=== PATIENT | male | born 1950 | race Caucasian/White ===

== ENCOUNTER → 2016-07-05 | Outpatient (CLI) | payer OTHER ==
--- NOTE | 2016-07-05 18:09 | DX ---
Lumbar Spine, Two Views History: Lumbar fusion hardware. Comparison: April 2016. Findings: Five lumbar vertebral body segments, without compression fractures. Bilateral transpedicu lar screws and fusion rods at the L4, L5, and S1 levels. Interbody prosthetic disk material identifi ed at L4-L5 and L5-S1 in good position, with stable alignment from L4 through S1. Hardware appears i ntact, without a fracture. Bilateral total hip arthroplasties. L3-L4: Moderate degenerative disk disease and degenerative grade 1 retrolisthesis, 3 mm, with circum ferential osteophytes. L2-L3: Moderate degenerative disk disease, with 1-mm retrolisthesis and smaller osteophytes. L1-L2: Moderate degenerative disk disease, with endplate sclerotic changes, moderate disk space narr owing, circumferential osteophytes, and 2-mm retrolisthesis again noted. Impressions 1. L4-S1 diskectomies, with posterior fusion hardware, demonstrating stable alignment. 2. Moderate degenerative disk disease from L1-L2 through L3-L4, with minimal retrolisthesis at all t hree levels, similar to the previous study.
== END ==
LOC: EDSTATUS 11:38 → FIMAGING 14:10
PROVIDERS: ATTEND Physician Assistant
DX: Z98.1 Arthrodesis status (principal); M51.36 Other intervertebral disc degeneration, lumbar region

== ENCOUNTER → 2017-01-31 | Outpatient (CLI) | payer OTHER | LOC: FIMAGING 08:34 | PROVIDERS: ATTEND Physician Assistant | DX: M48.06 Spinal stenosis, lumbar region (principal); M54.16 Radiculopathy, lumbar region; Z98.1 Arthrodesis status ==

== ENCOUNTER → 2017-03-08 | Outpatient (CLI) | payer OTHER | LOC: FIMAGING 07:41 | PROVIDERS: ATTEND Nurse Practitioner | DX: M54.5 Low back pain (principal); M25.551 Pain in right hip; M25.552 Pain in left hip; M48.06 Spinal stenosis, lumbar region; M48.04 Spinal stenosis, thoracic region; M51.36 Other intervertebral disc degeneration, lumbar region; M51.34 Other intervertebral disc degeneration, thoracic region; Z98.890 Other specified postprocedural states; Z96.643 Presence of artificial hip joint, bilateral ==

== ENCOUNTER → 2017-05-26 | Outpatient (CLI) | payer OTHER | LOC: FIMAGING 15:55 | PROVIDERS: ATTEND Orthopaedic Surgery | DX: M75.21 Bicipital tendinitis, right shoulder (principal); M75.111 Incomplete rotator cuff tear or rupture of right shoulder, not specified as traumatic; M75.51 Bursitis of right shoulder; M25.411 Effusion, right shoulder ==

== ENCOUNTER → 2017-11-02 | Outpatient (CLI) | payer OTHER | LOC: FIMAGING 08:44 | PROVIDERS: ATTEND Physician Assistant | DX: Z09 Encounter for follow-up examination after completed treatment for conditions other than malignant neoplasm (principal); Z98.1 Arthrodesis status ==